=== PATIENT | female | born 1950 | race Caucasian/White ===

== ENCOUNTER 2023-05-09 12:37 | Emergency (ER) | payer OTHER ==
--- NOTE | 2023-05-09 13:56 | RAD REPORT ---
EXAM DESCRIPTION: US - Extremity Venous Uni Ltd - 05/09/2023 1:08 pm CLINICAL HISTORY: Pain COMPARISON: None. TECHNIQUE: Real-time sonographic evaluation of the right lower extremity deep venous system was perf ormed. FINDINGS: Normal compressibility, flow augmentation, phasic flow and spontaneous flow is identified in the right lower extremity deep venous system. No intraluminal filling defects seen. IMPRESSION: No evidence of DVT in the right lower extremity.
--- NOTE | 2023-05-09 13:59 | EDPHYS ---
Physician Documentation [facility] Name: Opal Estrada Age: 72 yrs Sex: Female : 1950 Arrival Date: 05/09/2023 Time: 12:37 Bed IW1 Private MD: ED Physician Russ Connelly HPI: 05/09 12:50 This 72 yrs old Female presents to ER via Ambulatory with complaints of R groin pain. [facility] 12:50 Onset: The symptoms/episode began/occurred acutely. Associated signs and symptoms: The [facility] patient has no apparent associated signs or symptoms. Patient reports recent road trip from [place] and noticed right groin pain, worsening with movement, since last night. She is requesting an ultrasound to rule out a blood clot. No history of prior DVT. No shortness of breath, chest pain, swelling, or any other symptoms at this time.. Historical: - Allergies: 12:53 No Known Allergies; mb9 - Home Meds: 12:53 Hydrochlorothiazide Oral [Active]; mb9 - PMHx: 12:53 Hypertensive disorder; vertigo; mb9 - PSHx: 12:53 Cholecystectomy; Total abdominal hysterectomy; mb9 - Immunization history:: Adult Immunizations up to date. - Social history:: Smoking status: Patient denies any tobacco usage or history of. ROS: 12:50 Constitutional: Negative for fever, chills, and weight loss, Eyes: Negative for injury, jh7 pain, redness, and discharge, Cardiovascular: Negative for chest pain, palpitations, and edema, Respiratory: Negative for shortness of breath, cough, wheezing, and pleuritic chest pain, Back: Negative for injury and pain, Skin: Negative for injury, rash, and discoloration, Neuro: Negative for headache, weakness, numbness, tingling, and seizure, 12:50 MS/extremity: Positive for pain, of the right groin, 12:50 All other systems are negative, Exam: 12:50 Constitutional: This is a well developed, well nourished patient who is awake, alert, jh7 and in no acute distress. Head/Face: Normocephalic, atraumatic. Cardiovascular: Regular rate and rhythm with a normal S1 and S2. No gallops, murmurs, or rubs. Normal PMI, no JVD. No pulse deficits. Respiratory: Lungs have equal breath sounds bilaterally, clear to auscultation and percussion. No rales, rhonchi or wheezes noted. No increased work of breathing, no retractions or nasal flaring. Skin: Warm, dry with normal turgor. Normal color with no rashes, no lesions, and no evidence of cellulitis. Neuro: Awake and alert, GCS 15, oriented to person, place, time, and situation. Normal gait. 12:50 Musculoskeletal/extremity: ROM: limited active range of motion due to pain, in the right leg, Circulation is intact in all extremities. Pulses: are normal with no appreciated deficits, Perfusion: the extremity is normally perfused throughout, pink, warm, with brisk capillary refill, Sensation intact. DVT Exam: no swelling, no tenderness, negative Homans' sign noted on exam, no appreciated bluish discoloration, no erythema, no increased warmth, pain, of the right leg, of the right groin, Vital Signs: 12:51 BP 153 / 82; Pulse 82; Resp 18; Temp 97.8; Pulse Ox 100% on R/A; Weight 72.57 kg; mb9 Height 5 ft. 3 in. ; 12:51 Body Mass Index 28.34 (72.57 kg, 160.02 cm) 9 MDM: 12:42 Patient medically screened. [facility] 14:00 Differential diagnosis: DVT, adductor muscle strain, thigh contusion. Data reviewed: [facility] vital signs, nurses notes, radiologic studies, ultrasound. Care significantly affected by the following chronic conditions: Hypertension. Counseling: I had a detailed discussion with the patient and/or guardian regarding the historical points, exam findings, and any diagnostic results supporting the discharge/admit diagnosis, to return to the emergency department if symptoms worsen or persist or if there are any questions or concerns that arise at home. 05/09 12:51 Order name: US Extremity Venous Unilateral Ltd; Complete Time: 13:58 [facility] Administered Medications: No medications were administered Disposition: 14:13 Co-signature as Attending Physician, Russ Connelly MD I reviewed the patient's care rt provided by the Advanced Practice Provider and agree with the diagnosis and treatment plan. Disposition Summary: 05/09/23 13:59 Discharge Ordered Notes: Location: Home [facility] Problem: new [facility] Symptoms: are unchanged [facility] Condition: Stable [facility] Diagnosis - Right groin strain [facility] Followup: [facility] - With: Private Physician - When: 2 - 3 days - Reason: Recheck today's complaints Discharge Instructions: - Discharge Summary Sheet [facility] - Adductor Muscle Strain [facility] - Muscle Strain [facility] Forms: - Medication Reconciliation Form [facility] - Thank You Letter [facility] - Patient Portal Instructions [facility] - Leadership Thank You Letter [facility] Signatures: Dispatcher [employer] EDMichelle Stanford FNP [employer] [facility] Florina Cannon RN RN mb9 Russ Connelly MD MD rt Corrections: (The following items were deleted from the chart) 12:55 12:53 PMHx: None; keiry ricci
--- NOTE | 2023-05-09 13:59 | ER ---
Nurse's Notes [facility] Name: Opal Estrada Age: 72 yrs Sex: Female : 1950 Arrival Date: 05/09/2023 Time: 12:37 Bed IW1 Private MD: Diagnosis: Right groin strain Presentation: 05/09 12:51 Chief complaint: Patient states: "I drove from [place] the other day to visit family mb9 and last night I started having right groin pain. I just want to make sure it's not a clot or anything." Pt denies SOB/CP. Coronavirus screen: Vaccine status: Patient reports receiving the 2nd dose of the covid vaccine. Ebola Screen: No symptoms or risks identified at this time. Initial Sepsis Screen: Does the patient meet any 2 criteria? No. Patient's initial sepsis screen is negative. Does the patient have a suspected source of infection? No. Patient's initial sepsis screen is negative. Risk Assessment: Do you want to hurt yourself or someone else? Patient reports no desire to harm self or others. Onset of symptoms was 2022. 12:51 Method Of Arrival: Ambulatory 9 12:51 Acuity: DONAL 4 mb9 Triage Assessment: 12:55 General: Appears in no apparent distress. Behavior is calm, cooperative. Pain: mb9 Complains of pain in right groin Quality of pain is described as throbbing. Neuro: Wu Agitation-Sedation Scale (RASS): 0 - Alert and Calm Level of Consciousness is awake, alert, obeys commands, Oriented to person, place, time, situation, Appropriate for age. Cardiovascular: Patient's skin is warm and dry. Respiratory: Airway is patent Respiratory effort is even, unlabored, Respiratory pattern is regular, symmetrical, Denies shortness of breath. Derm: Skin is pink, warm \\T\\ dry. Historical: - Allergies: 12:53 No Known Allergies; mb9 - Home Meds: 12:53 Hydrochlorothiazide Oral [Active]; mb9 - PMHx: 12:53 Hypertensive disorder; vertigo; mb9 - PSHx: 12:53 Cholecystectomy; Total abdominal hysterectomy; mb9 - Immunization history:: Adult Immunizations up to date. - Social history:: Smoking status: Patient denies any tobacco usage or history of. Assessment: 14:00 Reassessment: Patient appears in no apparent distress at this time. Patient and/or hb family updated on plan of care and expected duration. Pain level reassessed. Patient is alert, oriented x 3, equal unlabored respirations, skin warm/dry/pink. Vital Signs: 12:51 BP 153 / 82; Pulse 82; Resp 18; Temp 97.8; Pulse Ox 100% on R/A; Weight 72.57 kg; 9 Height 5 ft. 3 in. ; 12:51 Body Mass Index 28.34 (72.57 kg, 160.02 cm) 9 ED Course: 12:41 Patient arrived in ED. ts1 12:42 Michelle Deras FNP is PHCP. [facility] 12:42 Russ Connelly MD is Attending Physician. [facility] 12:53 Triage completed. [facility] 12:55 Arm band placed on. 9 13:10 US Extremity Venous Unilateral Ltd In Process Unspecified. EDMS 14:07 No provider procedures requiring assistance completed. Patient did not have IV access hb during this emergency room visit. Administered Medications: No medications were administered Outcome: 13:59 Discharge ordered by . [facility] 14:07 Discharged to home ambulatory, with significant other, 14:07 Condition: stable 14:07 Discharge instructions given to patient, Instructed on discharge instructions, follow up and referral plans. Demonstrated understanding of instructions, follow-up care, 14:07 Patient left the ED. hb Signatures: Dispatcher [employer] EDAK Pennie Gerard RN RN Michelle Deras FNP [employer] [facility] Florina Cannon RN RN 9 Ebony Hernandez [facility] ts1 Corrections: (The following items were deleted from the chart) 12:55 12:53 PMHx: None; [facility]
[2023-05-09 14:16] VITALS: BP 153/82; TEMP 97.8; O2SAT 100
== END 2023-05-09 14:07 | disposition home or self-care (01) ==
LOC: ER 12:37
DX: S39.011A Strain of muscle, fascia and tendon of abdomen, initial encounter (principal)
CPT/HCPCS: 93971; 99282